=== PATIENT | male | born 1990 | race Caucasian/White ===

== ENCOUNTER 2017-04-20 01:52 | Emergency (ER) | payer MEDICAID ==
[~2017-04-20] VITALS: Ht 172.7 cm; Wt 108.0 kg
[2017-04-20] MEDS ORDERED: OXYcodone/APAP 5/325MG TABLET PO ONE (03:00)
[2017-04-20] MEDS ORDERED: OXYcodone/APAP 5/325MG TABLET ONE (03:03)
[2017-04-20 04:01] VITALS: BP 140/77
== END 2017-04-20 04:04 | disposition home or self-care (01) ==
LOC: ED 03:58
DX: S39.012A Strain of muscle, fascia and tendon of lower back, initial encounter (principal); X50.0XXA Overexertion from strenuous movement or load, initial encounter; Y93.89 Activity, other specified; Y92.89 Other specified places as the place of occurrence of the external cause; Y99.8 Other external cause status
CPT/HCPCS: 72110; 99284

== ENCOUNTER 2018-05-08 11:21 | Emergency (ER) | payer MEDICAID ==
[~2018-05-08] VITALS: Ht 172.7 cm; Wt 109.8 kg
[2018-05-08] MEDS ORDERED: DIAZEPAM 5 MG TABLET PO STA (11:44)
[2018-05-08] MEDS ORDERED: KETOROLAC 30 MG/1 ML IM ONE (12:00)
[2018-05-08] MEDS ORDERED: KETOROLAC 30 MG/1 ML ONE (12:16)
[2018-05-08] MEDS ORDERED: DIAZEPAM 5 MG TABLET ONE (12:17)
[2018-05-08 13:01] VITALS: BP 124/75
== END 2018-05-08 13:03 | disposition home or self-care (01) ==
LOC: ED 12:18
DX: M54.42 Lumbago with sciatica, left side (principal); M54.16 Radiculopathy, lumbar region
CPT/HCPCS: 72110; 96372; 99284; J1885

== ENCOUNTER 2018-06-08 18:41 | Emergency (ER) | payer MEDICAID ==
[~2018-06-08] VITALS: Ht 172.7 cm; Wt 112.6 kg
[2018-06-08 18:47] VITALS: BP 137/90
[2018-06-08] MEDS ORDERED: METHOCARBAMOL 750 MG TABLET ONE (19:10)
[2018-06-08] MEDS ORDERED: KETOROLAC 30 MG/1 ML ONE (19:10)
[2018-06-08] MEDS ORDERED: KETOROLAC 30 MG/1 ML IM ONE (19:30)
[2018-06-08] MEDS ORDERED: METHOCARBAMOL 750 MG TABLET PO ONE (19:30)
== END 2018-06-08 19:46 | disposition home or self-care (01) ==
LOC: ED 19:30
DX: M54.42 Lumbago with sciatica, left side (principal)
CPT/HCPCS: 96372; 99283; J1885; J7512

== ENCOUNTER 2018-07-08 10:10 | Emergency (ER) | payer MEDICAID, OTHER ==
[~2018-07-08] VITALS: Ht 172.7 cm; Wt 112.0 kg
[2018-07-08] MEDS ORDERED: SODIUM CHLORIDE FLUSH 10ML SYR IVF ONE (11:00)
[2018-07-08 11:08] LABS: BASOPHILS # (AUTO) 0.03 x10^3/uL (0-0.1); BASOPHILS % (AUTO) 0 % (0-1); EOSINOPHILS # (AUTO) 0.37 x10^3/uL (0-0.4); EOSINOPHILS % (AUTO) 2 % (1-7); LYMPHOCYTES # (AUTO) 2.44 x10^3/uL (1-3.4); LYMPHOCYTES % (AUTO) 14 % (22-44); MD NO; MEAN CORPUSCULAR HEMOGLOBIN 30.1 pg (27.5-34.5); MEAN CORPUSCULAR HGB CONC 34.3 g/dL (33.2-36.2); MEAN CORPUSCULAR VOLUME 87.7 fL (81-97); MEAN PLATELET VOLUME 7.5 fL (7.4-10.4); MONOCYTES # (AUTO) 0.73 x10^3/uL (0.2-0.8); MONOCYTES % (AUTO) 4 % (2-9); NEUTROPHILS # (AUTO) 14.31 x10^3/uL (1.8-6.8); NEUTROPHILS % (AUTO) 80 % (42-75); PLATELET COUNT 382 x10^3/uL (130-400); RED BLOOD COUNT 4.91 x10^6/uL (4.38-5.82); RED CELL DISTRIBUTION WIDTH 14.1 % (9.4-14.8)
[2018-07-08 11:09] LABS: MICROSCOPIC NOT IND
[2018-07-08 11:11] LABS: CULTURE INDICATED? NO
[2018-07-08 11:16] LABS: ALANINE AMINOTRANSFERASE 80 U/L (12-78); ALBUMIN 3.9 g/dL (3.4-5.0); ANION GAP 7 mmol/L (5-15); CALCIUM 8.2 mg/dL (8.5-10.1); CHLORIDE 109 mmol/L (98-107); CREATININE 1.04 mg/dL (0.7-1.3)
[2018-07-08 11:19] LABS: ALKALINE PHOSPHATASE 80 U/L (45-117); BILIRUBIN,TOTAL 0.5 mg/dL (0.2-1.0); TOTAL PROTEIN 7.8 g/dL (6.4-8.2)
[2018-07-08] MEDS ORDERED: KETOROLAC 30 MG/1 ML ONE (11:25)
[2018-07-08] MEDS ORDERED: KETOROLAC 30 MG/1 ML IM ONE (11:30)
[2018-07-08 13:43] VITALS: BP 120/81
== END 2018-07-08 14:10 | disposition home or self-care (01) ==
LOC: ED 11:40
DX: K57.32 Diverticulitis of large intestine without perforation or abscess without bleeding (principal)
CPT/HCPCS: 36415; 74176; 76870; 80053; 81003; 85025; 96372; 99285; J1885

== ENCOUNTER 2019-08-05 20:30 | Emergency (ER) | payer MEDICAID ==
[~2019-08-05] VITALS: Ht 172.7 cm; Wt 106.2 kg
[2019-08-05 20:33] VITALS: BP 128/82
[2019-08-05] MEDS ORDERED: LIDOCAINE-MPF 1%, 5ML INFIL ONE (21:30)
[2019-08-05] MEDS ORDERED: LIDOCAINE-MPF 1%, 5ML ONE (21:39)
--- NOTE | 2019-08-05 22:15 | NUR ---
RT HAND SUTURE SITE CLEANSED W/ SALINE. NEOSPORIN AND GAUZE DRESSING APPLIED
[2019-08-05] MEDS ORDERED: NEOSPORIN OINT. PKT 1 PACKET ONE (22:17)
== END 2019-08-05 22:35 | disposition home or self-care (01) ==
LOC: ED 22:30
DX: S43.52XA Sprain of left acromioclavicular joint, initial encounter (principal); S40.212A Abrasion of left shoulder, initial encounter; S40.812A Abrasion of left upper arm, initial encounter; S50.812A Abrasion of left forearm, initial encounter; Y04.8XXA Assault by other bodily force, initial encounter; Y93.89 Activity, other specified; Y92.009 Unspecified place in unspecified non-institutional (private) residence as the place of occurrence of the external cause; Y99.8 Other external cause status
CPT/HCPCS: 12001; 99283

== ENCOUNTER 2019-10-14 15:21 | Emergency (ER) | payer MEDICAID ==
[~2019-10-14] VITALS: Ht 172.7 cm; Wt 101.8 kg
[2019-10-14] MEDS ORDERED: SODIUM CHLORIDE FLUSH 10ML SYR IVF ONE (16:30)
[2019-10-14] MEDS ORDERED: HYDROmorphone 2 MG/ML, 1ML IVPush PRN (16:30)
[2019-10-14] MEDS ORDERED: HYDROmorphone 1 MG/ML, 1ML INJ ONE (16:35)
--- NOTE | 2019-10-14 16:40 | NUR ---
URINE SAMPLE OBTAINED. PATIENT MEDICATED PER DEC. 5 RIGHTS VERIFIED PRIOR. 3 P'S ADDRESSED.
[2019-10-14 16:51] LABS: MICROSCOPIC NOT IND
[2019-10-14 16:54] LABS: CULTURE INDICATED? NO
--- NOTE | 2019-10-14 17:00 | NUR ---
LAB AT BEDSIDE TO DRAW PATIENT.
--- NOTE | 2019-10-14 17:17 | NUR ---
REPORT TO CAITY GORDON.
--- NOTE | 2019-10-14 17:21 | NUR ---
ASSUMED CARE OF PATIENT. PATIENT VISITING IN ROOM WITH FAMILY. NO ACUTE DISTRESS NOTED. VS STABLE. CALL LIGHT IN PLACE. WILL CONTINUE TO MONITOR.
[2019-10-14 17:22] LABS: BASOPHILS # (AUTO) 0.14 x10^3/uL (0-0.1); BASOPHILS % (AUTO) 1 % (0-1); EOSINOPHILS # (AUTO) 0.21 x10^3/uL (0-0.4); EOSINOPHILS % (AUTO) 2 % (1-7); LYMPHOCYTES # (AUTO) 3.53 x10^3/uL (1-3.4); LYMPHOCYTES % (AUTO) 26 % (22-44); MD NO; MEAN CORPUSCULAR HEMOGLOBIN 29.2 pg (27.5-34.5); MEAN CORPUSCULAR HGB CONC 33.1 g/dL (33.2-36.2); MEAN CORPUSCULAR VOLUME 88.2 fL (81-97); MEAN PLATELET VOLUME 7.7 fL (7.4-10.4); MONOCYTES # (AUTO) 0.77 x10^3/uL (0.2-0.8); MONOCYTES % (AUTO) 6 % (2-9); NEUTROPHILS # (AUTO) 8.96 x10^3/uL (1.8-6.8); NEUTROPHILS % (AUTO) 66 % (42-75); PLATELET COUNT 398 x10^3/uL (130-400); RED BLOOD COUNT 5.17 x10^6/uL (4.38-5.82); RED CELL DISTRIBUTION WIDTH 13.7 % (9.4-14.8)
[2019-10-14 17:24] LABS: ALANINE AMINOTRANSFERASE 42 U/L (12-78); ALBUMIN 3.5 g/dL (3.4-5.0); ANION GAP 5 mmol/L (5-15); CALCIUM 7.9 mg/dL (8.5-10.1); CHLORIDE 106 mmol/L (98-107); CREATININE 0.97 mg/dL (0.7-1.3)
[2019-10-14 17:26] LABS: ALKALINE PHOSPHATASE 75 U/L (45-117); BILIRUBIN,TOTAL 0.3 mg/dL (0.2-1.0); TOTAL PROTEIN 7.7 g/dL (6.4-8.2)
[2019-10-14 17:56] VITALS: BP 114/68
== END 2019-10-14 18:01 | disposition home or self-care (01) ==
LOC: ED 17:55
DX: S62.221A Displaced Rolando's fracture, right hand, initial encounter for closed fracture (principal); F17.200 Nicotine dependence, unspecified, uncomplicated; Y04.0XXA Assault by unarmed brawl or fight, initial encounter; Y93.89 Activity, other specified; Y92.488 Other paved roadways as the place of occurrence of the external cause; Y99.8 Other external cause status
CPT/HCPCS: 36415; 73130; 80053; 81003; 83690; 85025; 96372; 99284; J1170

== ENCOUNTER 2020-05-15 19:41 | Emergency (ER) | payer MEDICAID ==
[~2020-05-15] VITALS: Ht 172.7 cm; Wt 99.7 kg
[2020-05-15 19:44] VITALS: BP 129/90
[2020-05-15] MEDS ORDERED: HYDROcodone/APAP 5/325 TABLET PO STA (20:18)
[2020-05-15] MEDS ORDERED: HYDROcodone/APAP 5/325 TABLET ONE (20:22)
[2020-05-15] MEDS ORDERED: CLINDAMYCIN 300 MG CAPSULE ONE (20:22)
--- NOTE | 2020-05-15 20:24 | NUR ---
MEDS ADMIN PER DEC.
[2020-05-15] MEDS ORDERED: CLINDAMYCIN 300 MG CAPSULE PO ONE (20:30)
== END 2020-05-15 20:56 | disposition home or self-care (01) ==
LOC: ED 20:42
DX: K08.89 Other specified disorders of teeth and supporting structures (principal)
CPT/HCPCS: 99283

== ENCOUNTER 2021-02-13 11:57 | Emergency (ER) | payer MEDICAID ==
[~2021-02-13] VITALS: Ht 172.7 cm; Wt 102.8 kg
[2021-02-13 12:04] VITALS: BP 140/81
== END 2021-02-13 13:27 | disposition home or self-care (01) ==
LOC: ED 13:05
DX: S43.422A Sprain of left rotator cuff capsule, initial encounter (principal); L03.211 Cellulitis of face; X58.XXXA Exposure to other specified factors, initial encounter; Y93.89 Activity, other specified; Y92.69 Other specified industrial and construction area as the place of occurrence of the external cause; Y99.8 Other external cause status
CPT/HCPCS: 99283

== ENCOUNTER 2021-03-02 18:00 | Emergency (ER) | payer MEDICAID ==
[~2021-03-02] VITALS: Ht 172.7 cm; Wt 107.5 kg
--- NOTE | 2021-03-02 18:29 | NUR ---
TASK RN: PT AMBULATORY TO ROOM 2 W/ C/O L LEG NUMBNESS FROM KNEE TO TOE. PT STILL HAS FULLL ROM AND IS ABLE TO MOVE LEG. STATES HE CANNOT RECALL WHEN NUMBNESS STARTED BUT BELIEVES IT WAS SOMETIME THIS WEEK. STATES HE HAD DIFFICULTY WALKIG THIS AM UNTIL AFTER HE TOOK A SHOWER THEN RETURNED TO BASELINE AND WANTS TO GET LEG ASSESSED. DENIES PAIN. NO SWELLING NOTED. DENIES HX DM.
[2021-03-02 20:15] VITALS: BP 119/79
--- NOTE | 2021-03-02 20:38 | NUR ---
D/C INSTRUCTIONS & F/U APPT RV'WD WITH PT, HE VERBALIZES UNDERSTANDING. COPY OF XR RESULTS PROVIDED TO PT. PT AMBULATED OUT OF ED WITH SIGNIFICANT OTHER WITHOUT DIFFICULTY.
== END 2021-03-02 20:37 | disposition home or self-care (01) ==
LOC: ED 18:49
DX: M54.16 Radiculopathy, lumbar region (principal); R20.2 Paresthesia of skin; I10 Essential (primary) hypertension
CPT/HCPCS: 72110; 99283; 99284